=== PATIENT | female | born 1990 | race Caucasian/White ===

== ENCOUNTER 2021-12-08 04:32 | Emergency (ER) | payer OTHER ==
[2021-12-08 04:40] VITALS: TEMP 97.6
[2021-12-08] MEDS ORDERED: HALOPERIDOL LACTATE 5 MG/ML 1 ML VIAL IM STA (05:05)
--- NOTE | 2021-12-08 05:05 | ED ---
Altered Mental Status HPI - General Chief Complaint: Recheck/Abnormal Lab/Rx Stated Complaint: allergic reaction Time Seen by Provider: 12/08/21 05:05 Source: patient, RN notes reviewed, old records reviewed Mode of arrival: ambulatory Limitations: no limitations - History of Present Illness Initial Comments: This is a 31-year-old female to the emergency department for evaluation coming in for altered mental state suspected drug use drug abuse and overdose. Patient is not acting appropriately during history of present illness. She denies any specific complaints except she stating that she can't stop shaking having tremors and not feeling well. MD Complaint: altered mental status, confusion, decreased responsiveness, we akness -: hour(s) Severity: moderate Consistency of Symptoms: waxing and waning, getting worse Context: drug abuse Associated Symptoms: diaphoresis, nausea/vomiting - Related Data Allergies Allergy/AdvReac Type Severity Reaction Status Date / Time cephalexin Allergy Rash/Hives Verified 12/08/21 04:40 Review of Systems ROS Statement: Those systems with pertinent positive or pertinent negative responses have been documented in the HPI. ROS Other: All systems not noted in ROS Statement are negative. Past Medical History Additional Past Medical History / Comment(s): DRUG ABUSE History of Any Multi-Drug Resistant Organisms: None Reported Past Surgical History: Section Past Psychological History: No Psychological Hx Reported Smoking Status: Current every day smoker Past Alcohol Use History: Daily Past Drug Use History: Cocaine, Methamphetamine, Opiates, Prescription Drug Abuse General Exam Limitations: altered mental status General appearance: alert, in no apparent distress, anxious Head exam: Present: atraumatic, normocephalic, normal inspection Eye exam: Present: normal appearance, PERRL, EOMI. Absent: scleral icterus, conjunctival injection, periorbital swelling ENT exam: Present: normal exam, mucous membranes moist Neck exam: Present: normal inspection. Absent: tenderness, meningismus, lymphadenopathy Respiratory exam: Present: normal lung sounds bilaterally. Absent: respiratory distress, wheezes, rales, rhonchi, stridor Cardiovascular Exam: Present: regular rate, normal rhythm, normal heart sounds. Absent: systolic murmur, diastolic murmur, rubs, gallop, clicks GI/Abdominal exam: Present: soft, normal bowel sounds. Absent: distended, tenderness, guarding, rebound, rigid Extremities exam: Present: normal inspection, full ROM, normal capillary refill. Absent: tenderness, pedal edema, joint swelling, calf tenderness Back exam: Present: normal inspection Neurological exam: Present: alert, oriented X3, CN II-XII intact Psychiatric exam: Present: normal affect, normal mood Skin exam: Present: warm, dry, intact, normal color. Absent: rash Course Vital Signs 12/08/21 04:35 Temperature 97.6 F Pulse Rate 76 Respiratory 18 Rate Blood Pressure 119/73 O2 Sat by Pulse 99 Oximetry - Reevaluation(s) Reevaluation #1: 12/08/21 06:29 Medical records reviewed Disposition Clinical Impression: Altered mental state, Polysubstance abuse Disposition: HOME SELF-CARE Condition: Fair Instructions (If sedation given, give patient instructions): Polysubstance Abuse (ED) Is patient prescribed a controlled substance at d/c from ED?: No Referrals: None,Stated [Primary Care Provider] - 1-2 days Time of Disposition: 07:00
[2021-12-08 07:08] VITALS: BP 105/63; PULSE 65; RESP 16
== END 2021-12-08 11:25 | disposition home or self-care (01) ==
LOC: EC 04:32
DX: R41.82 Altered mental status, unspecified (principal); F19.129 Other psychoactive substance abuse with intoxication, unspecified; F17.200 Nicotine dependence, unspecified, uncomplicated; Z88.1 Allergy status to other antibiotic agents
CPT/HCPCS: 99284